=== PATIENT | male | born 1940 | race Caucasian/White ===

== ENCOUNTER 2020-07-15 08:15 | Outpatient (RCR) | payer MEDICARE, SELFPAY ==
--- NOTE | 2020-07-15 09:53 | PTOPEVAL ---
PHYSICAL THERAPY EVALUATION Thank you for referring Carlos Miguel to [facility].? Following PT eval - corrective maneuver was performed for L horizontal canal. Self treatment technique was given and reviewed with Carlos. In addition balance activities were suggested for HEP. I will follow up with a phone call next week to see how he is doing. If further PT is required will formulate a plan of care and forward it to you for signature. I agree with the above written information. Referring Physician Date Admitting Provider: Attending Provider: Precious Batista, ANP Referring Provider: *PT Outpatient Evaluation Start: 07/15/20 08:25 Freq: Status: Active Protocol: Document 07/15/20 08:26 ZANDRA (Rec: 07/15/20 09:52 ZANDRA [id number]) Therapy Assessment Status Assessment Status Assessment Status Evaluation Outpatient Past Medical History Past Medical History Source of Past Medical History Patient Neurological History Hx Neurological Disorders No Significant History Cardiovascular History Hx Coronary Stent Yes Hx Hypertension Yes Respiratory History Hx Respiratory Disorders No Significant History Gastrointestinal History Hx Gastrointestinal Disorders No Significant History Genitourinary History Hx Genitourinary Disorders No Significant History Musculoskeletal History Hx Back Pain Yes Hx Joint Replacement Yes: bilat JOE, R TKA 08/2019 Endocrine History Hx Hypothyroidism Yes HEENT History Hx Cataracts Yes Integumentary History Hx Psoriasis Yes Other History Hx Cancer Yes: skin - surgically removed Evaluation Information Problem Diagnosis vertigo Onset couple of weeks ago Subjective Information Noticed when he got up at Query Text:As Reported By Patient/ night - sitting to standing. Family Getting better as time goes on . Walking down the hallway - will have some difficulties at times. Did have blood work done - sodium was a little low . Will take over the counter medication for the dizziness. Did take it this a.m. 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 Home aspirin 81 mg, supplements Meds Must Be Re-entered With Each Visit. Home Setting Home Type
--- NOTE | 2020-07-22 12:22 | PCPTNOTE ---
Follow up phone made 07/22/2020 - Carlos stated that he is doing well - no further episodes of dizziness. Will d/c from PT.
== END 2020-09-01 10:03 | disposition home or self-care (01) ==
LOC: ANHHIPT 08:15
PROVIDERS: PCP Internal Medicine; Visit Provider Physician Assistant Medical
DX: R42 Dizziness and giddiness (principal)
CPT/HCPCS: 97161

== ENCOUNTER 2024-05-21 11:00 | Outpatient (RCR) | payer MEDICARE, SELFPAY ==
--- NOTE | 2024-02-21 14:28 | PTOPEVAL1 ---
Assessment and note entered by Matilda Collazo, PT Evaluation Information Assessment Status Evaluation Diagnosis low back pain unspec, oth. chronic pain G89.29 ICD-10 Condition Codes (PT) Pain in low back M54.50,R26.9,Weakness R53.1 Onset 4-5 years or so Subjective Information Reports pain starts a little then becomes more intense once in a while. Takes Tylenol but doctors don't want him to take anything else. Pt states does take ibuprofen every once in a while and this works better. No recent x-rays on back but remembers before the spine/vertebrae basically together . Pt uses a cane most of the time in the last 4-5 years Before pandemic uses hiking poles to walk, would go 2 miles every couple of days. Standing elliptical at gym can do 10 minutes for about a mile and doesn't hurt at the time. Bike seems to hurt, Nustep doesn't hurt at the time but about an hour later back will be bothersome. Tries to stretch the left side but I'm probably not doing it right . sometimes does a stretching back on the counter in the kitchen. Would like therapy to reduce the pain[place] able to garden chandler and weeding. Reported Pain Level Pain Score 1: Self Report Additional Pain Score Comments pain off to the left walking long enough center of back may bother Assessment PT Clinical Summary Pt presents with history of DDD multilevel lumbar that pt reports has days is low and days is higher . States he used to like to hike outside but no longer does that, no longer gardens either. Pt has used a cane for ambulation last 4-5 years, reports does not have good balance but is careful thus has not had any falls. Pt does demo significant curvaturs of the lumbar spine, poor standing and sitting alignment, decreased flexibility multiple muscles, and weakness of multiple muscles as well. Pt will beenfit from therapy to address deficits, improve function with less pain. Plan of Care Interventions
--- NOTE | 2024-02-21 14:28 | OPREHPOC ---
Outpatient Therapy Plan of Care This is a Multidisciplinary Plan of Care that may contain components documented by all disciplines (PT, OT, and ST.) PT Problem 1 PT Problem #1 Knowledge Deficit PT Goal 1 Goal Pt will be independent in HEP Pt will verbalize understanding of diagnosis and prognosis Target Visit 5 PT Problem 2 PT Problem #2 Pain PT Goal 1 Goal Pt will report greatest pain level at 3/10 or less to improve ADLs and activities Target Visit 5 PT Goal 2 Goal Pt will report ability to walk outdoors without being limited by back pain Target Visit 10 PT Problem 3 PT Problem #3 Impaired Flexibility PT Goal 1 Goal Pt will demo only mild flexibility deficit in gastrocs Target Visit 10 PT Problem 4 PT Problem #4 Impaired Strength PT Goal 1 Goal Pt will demo core strength of 3+/5 of the TRAM to improve lumbopelvic stability Target Visit 10 PT Goal 2 Goal Pt will demo strength of 4/5 in all tested planes Target Visit 10
--- NOTE | 2024-02-29 13:41 | PCPTNOTE ---
Pt was called after he did not present for appointment time. Pt stated he forgot his appt. Was marked as a NCNS per dept policy of not being present 20 min after appt time.
--- NOTE | 2024-05-02 15:52 | PTOPPROG ---
Assessment and note entered by Matilda Collazo, PT Evaluation Information Assessment Status Progress Diagnosis low back pain unspec, oth. chronic pain G89.29 ICD-10 Condition Codes (PT) Pain in low back M54.50,R26.9,Weakness R53.1 Onset 4-5 years or so Subjective Information Pt reports was able to do some gardening and weeding. Pt reports does weight training at gym and then will do some cardio versus NuStep. Traded cane for hiking stick which has helped improve walking. Still can't walk more than 15 minutes wiht brace in place. Feels like therapy is helping the back, and is getting better. Pt reports thinks the pain is a little better. States nights are worse, and last night was worse because was on the riding mower without the back brace. Pt states thinks the pain is less intense but is still a struggle at times. Lifting is still troublesome. Assessment PT Clinical Summary Pt has attended therapy consistently for his low back pain and difficulty in walking though at a reduced frequency per patient request. Pt reports feeling as though his back is improving, reports lower pain levels overall, and demo's improved balance and posture with walking. Pt has not been focusing on his stretching but appears to have a better understanding of importance of this after discussion today in therapy. He also expresses intent to update his back brace as this helps his pain and endurance with walking. Pt is making progress, however would still greatly benefit from continued therapy to continue progression and met maximal benefit for independent, safe, and decreased pain with function. Plan of Care Interventions Electrical Stimulation,Gait Training,Hot Pack/Cold Pack,Manual Therapy,Mechanical Traction,Neuro Re- education,Patient/Caregiver Educati,Therapeutic Activities,Therapeutic Exercise,Self-Care/Home Management,Ultrasound PT Services Indicated Yes Treatment Frequency and 1x weekly x 5 weeks Duration These treatments will address the objective and functional deficits as defined above. The patient will be advanced safely and appropriately in order for the patient to progress towards his/her prior level of function. Additional exercises will be introduced and as well as a comprehensive home exercise program upon discharge, if needed, ?to ensu
== END 2024-05-21 23:59 | disposition home or self-care (01) ==
LOC: ANHHIPT 11:00
PROVIDERS: PCP Physician Assistant Medical; Visit Provider Physician Assistant Medical
DX: M54.50 Low back pain, unspecified (principal); G89.29 Other chronic pain
CPT/HCPCS: 97035; 97110; 97112; 97116; 97140; 97161; 97530; 97750

== ENCOUNTER 2024-08-27 10:15 | Outpatient (RCR) | payer MEDICARE, SELFPAY ==
--- NOTE | 2024-06-30 16:04 | PTOPPROG ---
Assessment and note entered by Janel Herrera, PT Re-Eval Information Assessment Status Progress Diagnosis low back pain unspec, oth. chronic pain G89.29 ICD-10 Condition Codes (PT) R26.9,Weakness R53.1,Pain in low back M54.50 Onset 4-5 years or so Subjective Information Pt reports that he continue to feel discomfort to his lower back when standing and walking for longer distances. He is compliant with exercises and states Physical Therapy is helping him gain core strength and stability. He feels the gentle traction he received last session helped to stretch tight muscles in his back. Assessment PT Clinical Summary Pt has been receiving skilled PT for non-surgical management of chronic lowback pain, weakness and gait deficits. He demos gains and improvement in core strength and BLE strength and flexibility, however has not completely met his goals. He also underwent recent MRI on the back and continue to refuse surgery at this time, received a new lumbar brace which provided improved support versus the old one. Pt will benefit from continued skilled PT intervention as Ortho prescribed to gain knowledge and further improve remaining deficits to reduce risk for falls and improve safety with standing and community ambulation tasks. Plan of Care Interventions Electrical Stimulation,Gait Training,Hot Pack/Cold Pack,Manual Therapy,Mechanical Traction,Neuro Re- education,Patient/Caregiver Education,Therapeutic Activities,Therapeutic Exercise,Ultrasound,Other Other Interventions IASTM, Taping PT Services Indicated Yes Treatment Frequency and 1x/wk x 8 visits Duration These treatments will address the objective and functional deficits as defined above. The patient will be advanced safely and appropriately in order for the patient to progress towards his/her prior level of function. Additional exercises will be introduced and as well as a comprehensive home exercise program upon discharge, if needed, ?to ensure carryover of functional gains achieved in the clinic. This treatment plan has been reviewed and agreement upon by the patient.
--- NOTE | 2024-09-02 10:08 | PCPTNOTE ---
This treatment is being continued on visit number [id number]. Please see documentation on both accounts to view progress. Completed interventions, outcomes, and problems have been marked as Inactive to facilitate the copying of the Care plan routine for recurring accounts.
== END 2024-09-02 08:55 | disposition still patient (30) ==
LOC: ANHHIPT 10:15
PROVIDERS: PCP Physician Assistant Medical; Visit Provider Physician Assistant Medical
DX: M54.50 Low back pain, unspecified (principal); G89.29 Other chronic pain
CPT/HCPCS: 97012; 97014; 97035; 97110; 97112; 97140; 97530; 97750; G0283